=== PATIENT | female | born 1975 | race Caucasian/White ===

== ENCOUNTER → 2018-03-23 08:16 | Outpatient (CLI) | payer BC, SELFPAY ==
--- NOTE | 2018-03-23 08:26 | ECHOD_ITS ---
Reason For Study: CP Procedure This was a 2D Doppler, Color Flow transthoracic echocardiogram. Exam performed in department. Left Ventricle Normal size and thickness. The estimated ejection fraction is 65 %. Normal diastology for age. No regional wall motion abnormalities noted. Right Ventricle Normal size and thickness. Normal systolic function. Atria Normal left atrium. Normal right atrium. Normal atrial septum. Mitral Valve The mitral valve is structurally normal. No prolapse or stenosis seen. Trivial mitral valve insufficiency. Tricuspid Valve Normal tricuspid valve. Trivial tricuspid valve insufficiency. Right ventricular systolic pressure estimated to be 22 mmHg. Aortic Valve Trisinus/trileaflet aortic valve. Pulmonic Valve Normal pulmonic valve. Great Vessels Normal aortic root. Normal arch. Normal inferior vena cava. Inferior vena cava collapse with sniff. Pericardium/Pleural No pericardial effusion. MMode/2D Measurements & Calculations LVIDd: 4.2 cm IVSd: 0.79 cm Ao root diam: 2.9 cm LVIDs: 2.8 cm LVPWd: 0.71 cm RVDd: 2.1 cm FS: 32.7 % LAV(MOD-bp): 34.1 ml EDV(MOD-sp4): 64.5 ml SV(MOD-sp4): 35.5 ml LAV(MOD-bp) Indexed: 19.6 ml/m2 ESV(MOD-sp4): 29.0 ml LAV(MOD-sp2): 43.6 ml EF(MOD-sp4): 55.0 % LAV(MOD-sp4): 24.8 ml LA A4 area: 12.1 cm2 RA A4 area: 10.0 cm2 Doppler Measurements & Calculations MV E max bhaskar: 112.3 cm/sec Lat Peak E' Bhaskar: 17.9 cm/sec Med Peak E' Bhaskar: 14.4 cm/sec MV A max bhaskar: 70.7 cm/sec E/E' lat: 6.3 E/E' med: 7.8 MV E/A: 1.6 Ao V2 max: 142.3 cm/sec LV V1 max: 96.5 cm/sec PA V2 max: 100.6 cm/sec Ao max P.1 mmHg LV V1 max P.7 mmHg TR max bhaskar: 207.8 cm/sec TR max P.3 mmHg Interpretation Summary The estimated ejection fraction is 65 %. Normal diastology for age. Right ventricular systolic pressure estimated to be 22 mmHg. There is no comparison study available. Ordering Physician: Fausto Baker Referring Physician: Fausto Baker Performed By: Rupa Varner RDCS
--- NOTE | 2018-03-23 09:08 | AAAS_ITS ---
Reason For Study: AAA screening Aorta Measurements Aorta Doppler Measurements Proximal aorta measures1.4 x 1.4cm. in cross- Peak systolic flow velocities within the proximal sectional axis. aorta measure 110.0 cm/sec. Proximal aorta measures1.4cm. in longitudinal Peak systolic flow velocities within the mid axis. aorta measure 85.7 cm/sec. Mid aorta measures1.4 x 1.4cm. in cross-sectionalPeak systolic flow velocities within the distal axis. aorta measure 91.2 cm/sec. Mid aorta measures1.3cm. in longitudinal axis. Distal aorta measures1.4 x 1.4cm. in cross- sectional axis. Distal aorta measures1.4cm. in longitudinal axis. Left Iliac Artery Left iliac artery measures .68 cm. in the longitudinal axis. Left iliac artery measures .61 x .62 cm. in the cross-sectional axis. Peak systolic velocity in the left iliac artery measures 175.0 cm/sec. Right Iliac Artery Right iliac artery measures .61 cm. in the longitudinal axis. Right iliac artery measures .64 x .67 cm. in the cross-sectional axis. Peak systolic velocity in the right iliac artery measures 142.0 cm/sec. Procedure Aorta IVC Iliac vasculature or bypass grafts [id number]. Exam performed in department. Interpretation Summary 1. No evidence of aortoiliac aneurysm or stenosis. Ordering Physician: Fausto Baker Referring Physician: Fausto Baker Performed By: Ronda García RVT
[2018-03-23 09:41] LABS: AST(SGOT) 11 U/L (15-37); Alanine Aminotransfer ALT/SGPT 18 U/L (13-56); Albumin, Serum 4.2 g/dL (3.2-5.0); Alkaline Phosphatase 58 U/L (45-117); Bilirubin, Direct 0.08 mg/dL (0.00-0.30); Cholesterol 151 mg/dL (200); Globulin 3.3 g/dL (2.2-4.2); High Density Lipoprotein 48 mg/dL; Protein, Total 7.5 g/dL (6.4-8.2); Triglycerides 95 mg/dL; Very Low Density Lipoprotein 19 mg/dL (5-40)
== END ==
PROVIDERS: Visit Provider Internal Medicine Cardiovascular Disease
DX: R07.9 Chest pain, unspecified (principal); Z13.89 Encounter for screening for other disorder
CPT/HCPCS: 36415; 76706; 80061; 80076; 93306

== ENCOUNTER → 2018-03-27 13:31 | Outpatient (CLI) | payer BC, SELFPAY ==
--- NOTE | 2018-03-27 13:33 | STE_ITS ---
Reason For Study: CHEST PAIN Stress Results Protocol: Max Protocol Maximum Predicted HR: 177 bpm Target HR: 150 bpm% Max imum Predicted HR: 92 % DurationHeart Rate Stage (mm:ss) (bpm) BP BASELINE 78 122/82 STAGE 1 3:00 11 8 148/70 STAGE 2 3:00 13 4 160/62 STAGE 3 3:00 15 5 170/62 STAGE 4 1:00 16 2 / RECOVERY 100 122/7 8 Stress Duration: 10:00 mm:ss Maximum Stress HR: 162 bpm Baseline Echocardiogram Findings The estimated ejection fraction is 60 %. Stress Echo Wall motion Data Resting WMIntermediate WMStress WM Resting Wall Motion Wall Motion Stress No regional wall motion No regional wall motion abnormalities noted. abnormalities noted. EKG Data The baseline ECG demonstrates normal sinus rhythm with at rate of _ beats per minute. The patient exercised according to the regular Max protocol for a total duration of 10:00. The maximum heart rate attained was 164 beats per minute. This was 92% of maximum predicted heart rate. The patient exercised into stage 4 of the Max protocol. During stress, there were no ST or T wave changes noted to suggest ischemia. No clinical angina was noted. No arrhythmias noted. Interpretation Summary The estimated ejection fraction is 60 %. Normal adequate treadmill echocardiogram. Negative for ischemia by EKG and echocardiographic criteria No anginal symptoms noted. Appropriate blood pressure response to exercise. Average exercise capacity for age. Test terminated due to attainmentof THR and fatigue. Final LVEF of 75%. No complications. Ordering Physician: Fausto Baker Referring Physician: Fausto Baker Performed By: Carola Hernández, NAZARIO, RVT
== END ==
PROVIDERS: Visit Provider Internal Medicine Cardiovascular Disease
DX: R07.9 Chest pain, unspecified (principal)
CPT/HCPCS: 93017; 93350

== ENCOUNTER → 2018-10-13 15:01 | Outpatient (CLI) | payer OTHER, SELFPAY | PROVIDERS: Referring Provider Physician Assistant; Visit Provider Physician Assistant | DX: J02.9 Acute pharyngitis, unspecified (principal) | CPT/HCPCS: 87081 ==